=== PATIENT | male | born 1930 | race Caucasian/White ===

== ENCOUNTER 2018-09-13 07:18 | Day surgery (SDC) | payer MEDICARE, MEDICAID ==
[2013-07-07 13:20] VITALS: BMI 24.4
[2018-09-13] MEDS ORDERED: MethylPREDNISolone Depo 40 mg/ml Inj ONE (08:45)
[2018-09-13] MEDS ORDERED: Iohexol 240 (50 ml) ONE (08:46)
[2018-09-13] MEDS ORDERED: Bupivacaine HCl 0.5% PF (30 ml) Inj ONE (08:46)
[2018-09-13] MEDS ORDERED: Propofol 10 mg/ml Inj (20 ML) ONE (08:56)
[2018-09-13] MEDS ORDERED: Lidocaine Hydrochloride 5 ML INJ ONE (09:10)
[2018-09-13 13:34] VITALS: BP 176/79; PULSE 67; RESP 18; TEMP 97.8; O2SAT 98
--- NOTE | 2018-09-13 15:06 | RAD ---
Date of service: 09/13/2018 PROCEDURE: Intraoperative Fluoroscopy. HISTORY: SACROILITIS FINDINGS: Fluoroscopic assistance was provided for sacroiliac joint injection. Please refer to the operative report from KALLI Dixon. Total fluoroscopic time (continuous mode) utilized during the procedure 14.7 seconds. Total exam DLP: 3.21 (mGy).
--- NOTE | 2018-09-20 08:54 | OP ---
PROCEDURE DATE: 09/13/2018 PREOPERATIVE DIAGNOSIS: Sacroiliitis. POSTOPERATIVE DIAGNOSIS: Sacroiliitis. PROCEDURE: Right and Left SI joint Injection under fluoroscopy. ANESTHESIOLOGIST: Ynes / UNRIS. SURGEON: RADAMES HOWELL M.D. COMPLICATIONS: None. BLOOD LOSS: None. BRIEF HISTORY AND INDICATIONS: The patient with hip and sacroiliac joint pain and arthritis of the sacroiliac joint. The patient came here today for sacroiliac joint intraarticular steroid injection under fluoroscopic guidance. PROCEDURE IN DETAIL: The patient was informed and consented for the procedure. Risks and benefits were explained. The patient was brought back to the procedure room, placed in prone position. Routine monitors were applied. Patient was prepped and draped in sterile fashion. The patient's sacroiliac joint was imaged using fluoroscopy. A 27-gauge needle was used to inject lidocaine 1% subcutaneously at the inferior medial sacroiliac joint line. Subsequently, 22-gauge needle, 3.5-inch, was advanced into the sacroiliac joint. Omnipaque 180 dye 1 mL was injected showing good intraarticular spread. Subsequently, Depo-Medrol 40 mg with 3 mL of 1% Lidocaine was injected with negative intermittent aspiration. No heme aspirated. No CSF fluid was aspirated throughout. No paresthesias were elicited throughout. The patient tolerated the procedure well. Vital signs remained stable. This was repeated on the contralateral side. The patient reported reduction of sacroiliac joint pain post procedure. DISPOSITION: Patient will be given instruction to follow up in two weeks and was discharged from the postoperative area in stable condition. No events or complications. Radames Howell MD
== END 2018-09-13 13:14 | disposition home or self-care (01) ==
LOC: C.SDS 07:18
PROVIDERS: ATTEND Anesthesiology Pain Medicine
DX: M46.1 Sacroiliitis, not elsewhere classified (principal); M53.2X7 Spinal instabilities, lumbosacral region; S33.6XXA Sprain of sacroiliac joint, initial encounter
CPT/HCPCS: 27096; J1030; J2704; Q9966